=== PATIENT | male | born 1955 | race Asian ===

== ENCOUNTER 2024-11-05 23:32 | Inpatient (IN) | payer OTHER ==
[~2024-11-05] VITALS: Ht 162.6 cm; Wt 70.3 kg
[2024-11-06 00:43] LABS: BASOPHILS % 0.7 % (0.0-2.0); EOSINOPHILS % 4.1 % (0.0-5.0); HEMATOCRIT. 46.8 % (42.0-52.0); HEMOGLOBIN. 15.9 g/dL (14.0-18.0); LYMPHOCYTES % 16.8 % (20.0-50.0); MEAN CORPUSCULAR HEMOGLOBIN 33.3 pg (28.0-32.0); MEAN CORPUSCULAR HGB CONC 33.9 g/dL (31.0-37.0); MEAN CORPUSCULAR VOLUME 98.4 fL (80.0-94.0); MEAN PLATELET VOLUME 8.4 fl (7.4-10.4); MONOCYTES % 8.5 % (2.0-8.0); NEUTROPHILS % 69.9 % (40.0-76.0); PLATELET 127 x1000/uL (130-400); RED BLOOD CELL COUNT 4.76 mill/uL (4.7-6.1); RED CELL DISTRIBUTION WIDTH 12.7 % (11.6-14.6); WHITE BLOOD COUNT 10.3 x1000/uL (4.5-11.0)
[2024-11-06 00:47] LABS: POTASSIUM 4.6 mEq/L (3.5-5.1)
[2024-11-06 00:48] LABS: CALCIUM 10.1 mg/dL (8.7-10.4)
[2024-11-06 00:53] LABS: CREATININE 1.9 mg/dL (0.6-1.3)
[2024-11-06 02:05] LABS: CLARITY URINE CLEAR (CLEAR); COLOR URINE YELLOW (YELLOW); GLUCOSE URINE 3+ (NEGATIVE); KETONES URINE NEGATIVE (NEGATIVE); LEUKOCYTE ESTERASE URINE NEGATIVE (NEGATIVE); NITRITE URINE NEGATIVE (NEGATIVE); OCCULT BLOOD URINE 1+ (NEGATIVE); PH URINE 5.5 (4.5-8.0); PROTEIN URINE 2+ (NEGATIVE); SPECIFIC GRAVITY URINE 1.015 (1.005-1.030); UROBILINOGEN URINE 0.2 E.U./dL (0.2-1.0)
[2024-11-06 03:15] LABS: BASOPHILS % 0.7 % (0.0-2.0); EOSINOPHILS % 4.1 % (0.0-5.0); HEMATOCRIT. 47.8 % (42.0-52.0); HEMOGLOBIN. 15.9 g/dL (14.0-18.0); LYMPHOCYTES % 17.5 % (20.0-50.0); MEAN CORPUSCULAR HEMOGLOBIN 32.6 pg (28.0-32.0); MEAN CORPUSCULAR HGB CONC 33.2 g/dL (31.0-37.0); MEAN CORPUSCULAR VOLUME 98.2 fL (80.0-94.0); MEAN PLATELET VOLUME 8.8 fl (7.4-10.4); MONOCYTES % 8.9 % (2.0-8.0); NEUTROPHILS % 68.8 % (40.0-76.0); PLATELET 129 x1000/uL (130-400); RED BLOOD CELL COUNT 4.87 mill/uL (4.7-6.1); RED CELL DISTRIBUTION WIDTH 12.7 % (11.6-14.6); WHITE BLOOD COUNT 10.6 x1000/uL (4.5-11.0)
[2024-11-06] MEDS ORDERED: ASPIRIN 325MG EC TABLET PO NR (03:15)
[2024-11-06 03:28] LABS: PROTHROMBIN TIME 11.4 sec (9.6-11.0)
[2024-11-06 03:49] LABS: CHLORIDE 102 mEq/L (98-107); POTASSIUM 4.9 mEq/L (3.5-5.1)
[2024-11-06 03:50] LABS: CARBON DIOXIDE 24 mEq/L (21-32); SODIUM 137 mEq/L (136-145)
[2024-11-06 03:51] LABS: CALCIUM 10.5 mg/dL (8.7-10.4)
[2024-11-06 03:55] LABS: CREATININE 1.9 mg/dL (0.6-1.3)
[2024-11-06 03:56] LABS: GLUCOSE 159 mg/dL (70-105); UREA NITROGEN BLOOD 28 mg/dL (9-23)
[2024-11-06 04:02] LABS: ETHANOL BLOOD < 10 mg/dL (<10)
[2024-11-06 04:03] LABS: TROPONIN I HIGH SENSITIVITY 148 ng/L (3.0-53)
[2024-11-06] MEDS: IOHEXOL-350 100 ML BOTTLE ONE (04:21)
[2024-11-06 04:36] LABS: WBC URINE 0-2 /hpf (0-2)
[2024-11-06] MEDS: DIAZEPAM 5 MG/ML 2ML SYR IV ONE (05:42)
[2024-11-06 05:52] LABS: TROPONIN I HIGH SENSITIVITY 182 ng/L (3.0-53)
[2024-11-06] MEDS: ASPIRIN 325MG EC TABLET PO NR (06:06)
[2024-11-06 07:18] LABS: BACTERIA URINE NONE SEEN
[2024-11-06] MEDS ORDERED: DOCUSATE SODIUM 100MG CAPSULE PO PRN (09:45)
[2024-11-06] MEDS ORDERED: MAGNESIUM/ALUMINUM HYDROXIDE/SIMETHICONE 30ML UDC PO PRN (09:45)
[2024-11-06] MEDS ORDERED: GUAIFENESIN 200MG/10ML SUGAR FREE UDC PO PRN (09:45)
[2024-11-06] MEDS ORDERED: CLONIDINE 0.1MG TABLET PO PRN (09:45)
[2024-11-06] MEDS ORDERED: ACETAMINOPHEN 325MG TABLET PO PRN ×2 (09:45)
[2024-11-06] MEDS ORDERED: IPRATROPIUM/ALBUTEROL 0.5-3(2.5)MG/3ML NEB HHN PRN (09:45)
[2024-11-06] MEDS ORDERED: ONDANSETRON HCL 4MG/2ML INJ IV PRN (09:45)
[2024-11-06] MEDS ORDERED: DEXTROSE 50% WATER 50ML SYRINGE IV PRN (11:00)
[2024-11-06] MEDS ORDERED: NITROGLYCERIN 0.4MG TABLET SL SL PRN (11:00)
[2024-11-06] MEDS: BLOOD SUGAR DIAGNOSTIC STRIP TEST SCH (11:45)
[2024-11-06] MEDS: INSULIN LISPRO 100 UNITS/ML SUBCUT SCH (12:15)
[2024-11-06 14:12] VITALS: BP 112/83; PULSE 91; RESP 18; TEMP 36.22512
[2024-11-06 17:55] VITALS: BP 114/90; PULSE 104; RESP 18; TEMP 36.78072; O2SAT 98
[2024-11-06 19:28] LABS: PHOSPHORUS 4.1 mg/dL (2.5-4.9)
[2024-11-06 19:30] LABS: AMMONIA < 17 uMol/L (<32); TROPONIN I HIGH SENSITIVITY 236 ng/L (3.0-53)
[2024-11-06 20:00] VITALS: BP 124/91; PULSE 97; RESP 18; TEMP 36.44736; O2SAT 97
[2024-11-06] MEDS: CARVEDILOL 12.5MG TABLET PO SCH (21:00)
[2024-11-06] MEDS: ATORVASTATIN CALCIUM 40MG TABLET PO SCH (21:00)
[2024-11-06 21:17] VITALS: BP 124/91; PULSE 97; RESP 18; TEMP 36.4736
[2024-11-06 23:06] LABS: TROPONIN I HIGH SENSITIVITY 250 ng/L (3.0-53)
[2024-11-07] VITALS: BP 130/72; PULSE 90; RESP 18; TEMP 36.89184; O2SAT 99
[2024-11-07 01:09] LABS: TROPONIN I HIGH SENSITIVITY 249 ng/L (3.0-53)
[2024-11-07 04:00] VITALS: BP 124/80; PULSE 80; RESP 20; TEMP 37.00296; O2SAT 98
[2024-11-07 08:00] VITALS: BP 143/97; PULSE 81; RESP 16; TEMP 36.83628; O2SAT 98
[2024-11-07 08:54] LABS: BASOPHILS % 0.5 % (0.0-2.0); EOSINOPHILS % 3.9 % (0.0-5.0); HEMATOCRIT. 42.5 % (42.0-52.0); HEMOGLOBIN. 14.3 g/dL (14.0-18.0); LYMPHOCYTES % 22.9 % (20.0-50.0); MEAN CORPUSCULAR HEMOGLOBIN 32.7 pg (28.0-32.0); MEAN CORPUSCULAR HGB CONC 33.6 g/dL (31.0-37.0); MEAN CORPUSCULAR VOLUME 97.3 fL (80.0-94.0); MEAN PLATELET VOLUME 8.6 fl (7.4-10.4); MONOCYTES % 9.9 % (2.0-8.0); NEUTROPHILS % 62.8 % (40.0-76.0); PLATELET 112 x1000/uL (130-400); RED BLOOD CELL COUNT 4.37 mill/uL (4.7-6.1); RED CELL DISTRIBUTION WIDTH 12.7 % (11.6-14.6); WHITE BLOOD COUNT 7.6 x1000/uL (4.5-11.0)
[2024-11-07] MEDS: METOPROLOL SUCCINATE 50MG ER TABLET PO SCH (08:59)
[2024-11-07] MEDS: TAMSULOSIN HCL 0.4MG SR CAPSULE PO SCH (09:00)
[2024-11-07] MEDS ORDERED: ASPIRIN 81MG TABLET PO SCH (09:00)
[2024-11-07 09:06] LABS: POTASSIUM 4.5 mEq/L (3.5-5.1)
[2024-11-07 09:07] LABS: CALCIUM 9.2 mg/dL (8.7-10.4)
[2024-11-07 09:11] LABS: CREATININE 2.3 mg/dL (0.6-1.3)
[2024-11-07 09:15] LABS: THYROID STIMULATING HORMONE 1.2 uIU/mL (0.55-4.78)
[2024-11-07 10:00] LABS: TROPONIN I HIGH SENSITIVITY 230 ng/L (3.0-53)
[2024-11-07] MEDS: ENOXAPARIN 40MG/0.4ML SYR SUBCUT SCH (10:35)
[2024-11-07 12:00] VITALS: BP 144/94; PULSE 88; RESP 17; TEMP 36.22512; O2SAT 98
[2024-11-07 12:37] LABS: *AMPHETAMINES SCREEN URINE NEGATIVE (NEGATIVE); *BENZODIAZEPINES SCREEN URINE NEGATIVE (NEGATIVE)
[2024-11-07 12:38] LABS: *BARBITURATES SCREEN URINE NEGATIVE (NEGATIVE); *COCAINE SCREEN URINE NEGATIVE (NEGATIVE); CANNABINOID URINE SCREEN NEGATIVE (NEGATIVE); ECSTASY MDMA SCREEN URINE NEGATIVE (NEGATIVE); METHADONE URINE SCREEN NEGATIVE (NEGATIVE); OPIATES URINE SCREEN NEGATIVE (NEGATIVE); PHENCYCLIDINE URINE SCREEN NEGATIVE (NEGATIVE)
[2024-11-07 16:00] VITALS: BP 120/83; PULSE 86; RESP 16; TEMP 36.33624; O2SAT 96
[2024-11-07] MEDS ORDERED: TAMS-11 PO (16:00)
[2024-11-07 16:21] VITALS: BP 143/93; PULSE 81; TEMP 97.2; O2SAT 99
== END 2024-11-07 17:00 | disposition home or self-care (01) | DRG 725 ==
LOC: ER 23:32 → 5WST 11-06 05:36
PROVIDERS: ADMIT Internal Medicine; ATTEND Internal Medicine
DX: N40.1 Benign prostatic hyperplasia with lower urinary tract symptoms (principal); I21.A1 Myocardial infarction type 2; N17.9 Acute kidney failure, unspecified; G93.40 Encephalopathy, unspecified; N13.8 Other obstructive and reflux uropathy; N39.0 Urinary tract infection, site not specified; E78.5 Hyperlipidemia, unspecified; Z20.822 Contact with and (suspected) exposure to COVID-19; E83.52 Hypercalcemia; N18.9 Chronic kidney disease, unspecified; E11.22 Type 2 diabetes mellitus with diabetic chronic kidney disease; I12.9 Hypertensive chronic kidney disease with stage 1 through stage 4 chronic kidney disease, or unspecified chronic kidney disease; E11.65 Type 2 diabetes mellitus with hyperglycemia; I48.91 Unspecified atrial fibrillation; I49.3 Ventricular premature depolarization; J06.9 Acute upper respiratory infection, unspecified; Z85.528 Personal history of other malignant neoplasm of kidney; Z79.84 Long term (current) use of oral hypoglycemic drugs; Z79.01 Long term (current) use of anticoagulants; Z90.5 Acquired absence of kidney; Z95.810 Presence of automatic (implantable) cardiac defibrillator
CPT/HCPCS: 36415; 70496; 70498; 71045; 76770; 80048; 80061; 80305; 80320; 81003; 82140; 82962; 83036; 83605; 83735; 84100; 84443; 84484; 85025; 87426; 93005; 93970; 99291; J1650; J1815; Q9967; G0480